=== PATIENT | male | born 1965 | race African-American/Black ===

== ENCOUNTER 2016-12-28 19:08 | Emergency (ER) | payer SELFPAY | END 2016-12-28 21:48 | disposition home or self-care (01) | LOC: ER 19:08 | DX: M79.1 Myalgia (principal); R52 Pain, unspecified; I10 Essential (primary) hypertension; E11.9 Type 2 diabetes mellitus without complications; V29.20XA Unspecified motorcycle rider injured in collision with unspecified motor vehicles in nontraffic accident, initial encounter | CPT/HCPCS: 71020; 96372; 99284; J1170 ==